=== PATIENT | male | born 1990 | race Caucasian/White ===

== ENCOUNTER 2018-01-01 13:26 | Emergency (ER) | payer MEDICAID ==
[2018-01-01] MEDS ORDERED: HYDROmorphone 1 mg/mL 1mL Syr IVP STA (14:52)
[2018-01-01] MEDS ORDERED: cefTRIAXone 2 GM in Sodium Chloride 0.9% 100 ML IV ONE (14:58)
[2018-01-01] MEDS ORDERED: HYDROmorphone 1 mg/mL 1mL Syr ONE (15:11)
--- NOTE | 2018-01-01 15:16 | ED Physician Chart ---
ED Chief Complaint/HPI - Patient Information Date Seen:: 01/01/18 Time Seen:: 13:45 Chief Complaint:: SOLE LEFT FOOT PAIN AND AGITATION/ANXIETY History of Present Illness:: THIS 27 YEAR OLD MALE WAS DISCHARGED FROM ANOTHER HOSPITAL WITH PERSCRIPTIONS FOR SERAQUEL, VALIUM AN ANTIBIOTIC AND PAIN MEDICATIONS. PT IS INSISTING THAT.HE SAID HE WAS DIAGNOSED WITH A DIAGNOSIS OF CELLLULITIS OF THE LEFT SOLE. THE PAIN IS 10/10 AND HAS BEEN PRESENT FOR ABOUT A WEEK. THE PAIN DOES NOT RADIATE UP HIS LEG OR GO ABOVE HIS ANKLE. THE PATIENT FURTHER STATES THAT HE IS POSITIVE FOR MRSA HE DENIES FEVER, CHILLS AND DIPHORESIS HE ALSO DENIES WALKING BAREFOOT. Allergies:: Allergies Allergy/AdvReac Type Severity Reaction Status Date / Time diphenhydramine Allergy Verified 01/01/18 14:09 [From Benadryl] haloperidol [From Haldol] Allergy Verified 01/01/18 14:09 Vitals:: Vital Signs - 8 hr 01/01/18 14:11 Temp 98.4 F HR 95 RR 18 BP 110/58 O2 Sat % 97 Historian:: Patient ED Review of Systems - Review of Systems General/Constitutional: No fever, No chills Skin: No bruising Head: Headache, No light-headedness Eyes: No pain, No diplopia ENT: No nasal drainage, No sore throat Neck: No stiffness Pulmonary: No cough GI: No nausea, No vomiting, No pain G/U: No dysuria, No hematuria, No nacturia Musculoskeletal: No back pain, No muscle pain Psychiatric: Prior psych history, Depression, No suicidal ideation Hematopoietic: No bruising, No lymphadenopathy Allergic/Immuno: No urticaria, No angioedema Neurological: No syncope, No focal symptoms, No dizziness Family Medical History - Family Member Mother History Unknown: Yes Ethnicity: Living Status: Still Living Other Medical History: Schizo-affective disorder, Bi-polar, anxiety ED Physical Exam - Physical Examination General/Constitutional: Awake, Well-developed, well-nourished, Alert, Ambulatory Other Gen/Cons comments:: AGGITATED AND UNCO-OPERATIVE. Head: Atraumatic Eyes: PERRL ENMT: External ears, nose nl, Nasal exam nl, Lips, teeth, gums nl, Oropharynx nl , Tonsils nl Neck: Nontender, No JVD, No nuchal rigidity, No mass, No stridor Respiratory: No Wheeze/Rhonchi/Rales Cardio Vascular: RRR, No murmur, gallop, rubs Other Cardio Vascular comments:: ADEQUATE PULSES ALL FOUR EXTREMITIES. GI: No tenderness/rebounding/guarding, No organomegaly, No hernia, Normal BS's, Nondistended, No mass/bruits, No McBurney tenderness Other GI comments:: RECTAL EXAM deferred at my discretion Other Extremities comments:: NO DEFORMITIES OF ANY EXTREMITY. The plantar surface of the left foot is minimally erythematous and not warm to the touch. It has the appearance of a partially a blister that is partially peeling over the ball over the foot. There is no exudate for periodic material present. The patient was claiming that it was tender to touch. Sensation intact to light touch in all four extremities. Motor strength is normal in the patient's gait is smooth. ED Labs/Radiology/EKG Results - Lab Results Results: Laboratory Tests 01/01/18 01/01/18 01/01/18 14:40 14:40 14:40 WBC 8.0 RBC 5.10 Hgb 13.6 Hct 42.4 MCV 83.0 MCH 26.6 MCHC Differential 32.0 RDW 14.4 Plt Count 218 MPV 8.2 Neutrophils % 58.0 Lymphocytes % 26.2 Monocytes % 11.3 H Eosinophils % 1.3 Basophils % 3.2 H Sodium 138 Potassium 3.4 L Chloride 105 Carbon Dioxide 21.9 Anion Gap 14.5 BUN 18 Creatinine 1.0 Est GFR ( Amer) > 60.0 Est GFR (Non-Af Amer) > 60.0 BUN/Creatinine Ratio 18.0 Glucose 99 Whole Bld Lactic Acid 1.85 Calcium 9.5 Total Bilirubin 1.0 AST 23 ALT 29 Alkaline Phosphatase 78 Total Protein 7.1 Albumin 4.3 Globulin 2.8 Albumin/Globulin Ratio 1.5 The CBC is unremarkable with no leukocytosis, anemia or thrombocytopenia. Renal function studies are within normal parameters electrolytes were all within normal standards except for the potassium which is mildly depressed at 3.4. Renal function studies were within normal parameters. Liver function studies were all within normal parameters. A lactic acid was sent as part of a census worker which was also within normal parameters. ED Assessment - Assessment General Assessment: CASE SUMMARY: 27-YEAR-OLD MALE WAS DISCHARGED FROM THE [facility] TODAY AND THE PATIENT COMES TO OUR FACILITY REQUESTING A REFILL OF HIS "LOST" PRESCRIPTIONS. THE PATIENT BECAME PROGRESSIVELY MORE AGITATED WHEN I WOULDN'T GIVE HIM VALIUM FOR HIS SEROQUEL. I FURTHER ADVISED HIM THAT HE WOULD HAVE TO RETURN TO THE OTHER HOSPITAL THAT DISCHARGED HIM WITH HIS PRESCRIPTIONS. I DID NOT FEEL THAT THE ANCIENT HAD ANY CELLULITIS OF HIS LEFT FOOT BUT ON THE OUTSIDE CHANCE, THAT HE HAD MRSA, I WROTE HIM A PRESCRIPTION. FOR BACTRIM DS. YOU REFUSE TO ACCEPT THE PRESCRIPTION AND HE REFUSED TO ACCEPT HIS DISCHARGE PAPERWORK. HE WAS ADVISED THAT HE COULD RETURN TO THE EMERGENCY DEPARTMENT BUT THAT HE WOULD NOT BE GIVEN ANY PRESCRIPTIONS OTHER THAN THE BACTRIM. DISCHARGED IN STABLE CONDITION. MDM DDX FOR AGGITATION: NOT HYPONATREMIA BASED ON NORMAL SERUM SODIUM. ED Septic Shock - . Is Septic Shock (SBP<90, OR Lactate>4 mmol\\L) present?: No - <6hrs of presentation: Vital Signs: Vital Signs - 8 hr 01/01/18 14:11 Temp 98.4 F HR 95 RR 18 BP 110/58 O2 Sat % 97 ED Reassessment (Disposition) - Reassessment Reassessment Condition:: Unchanged - Diagnosis Diagnosis:: BIPOLAR DISORDER. ED Discharge Plan - Patient Disposition Admit/Discharge/Transfer: PT DISCHARGED HOME Condition at Disposition: Stable Prescriptions: Sulfamethoxazole/TMP [Bactrim Ds] 1 tab PO BID #30 tab Instructions: Schizophrenia, Cellulitis, [id number], Bipolar Disorder Additional Instructions: Take antibiotic medication as prescribed. Follow-up with primary MD and psychiatrist as soon as possible.
[2018-01-01 15:17] LABS: % BASOPHILS 3.2 % (0.0-2.0); % EOSINOPHILS 1.3 % (0.0-5.0); % LYMPHOCYTES 26.2 % (20.0-50.0); % MONOCYTES 11.3 % (2.0-10.0); BASOPHILE ABSOLUTE 0.3 Th/cumm (0-0.2); EOSINOPHILE ABSOLUTE 0.1 Th/cmm (0.1-0.4); HEMATOCRIT 42.4 % (41.0-60); HEMOGLOBIN 13.6 gm/dL (12-16); LYMPHOCYTE ABSOLUTE 2.1 Th/cmm (1.5-3.0); MEAN CORPUSCULAR HEMOGLOBIN 26.6 pg (26.0-30.0); MEAN PLATELET VOLUME 8.2 fl; MONOCYTE ABSOLUTE 0.9 Th/cmm (0.3-1.0); NEUTROPHILE ABSOLUTE 4.6 Th/cmm (1.8-8.0); PLATELET COUNT 218 Th/cmm (150-400); RED CELL DISTRIBUTION WIDTH 14.4 % (11.5-20.0)
[2018-01-01 15:35] LABS: ALB/GLOB RATIO 1.5 (1.0-1.8); ALBUMIN 4.3 gm/dL (4.2-5.5); ALKALINE PHOSPHATASE 78 U/L (34-104); ANION GAP 14.5 (7.0-16.0); BUN - UREA NITROGEN 18 mg/dL (7-25); CALCIUM SERUM 9.5 mg/dL (8.6-10.3); CARBON DIOXIDE 21.9 mEq/L (21.0-31.0); CHLORIDE 105 mEq/L (98-107); GFR AFRICAN-AMERICAN > 60.0 ml/min (>90); GFR NON AFRICAN-AMERICAN > 60.0 ml/min; GLUCOSE 99 mg/dL (70-105); POTASSIUM SERUM 3.4 mEq/L (3.5-5.1); SGOT 23 U/L (13-39); SGPT/ALT 29 U/L (7-52); SODIUM SERUM 138 mEq/L (136-145); TOTAL PROTEIN,SERUM 7.1 gm/dL (6.0-8.3)
== END 2018-01-01 17:53 | disposition home or self-care (01) ==
LOC: ER 13:26
DX: F31.9 Bipolar disorder, unspecified (principal); Z88.8 Allergy status to other drugs, medicaments and biological substances
CPT/HCPCS: 99284; 96365; 96375; 36415; 83605; 85025; 80053; 87040 ×2; J0696 ×2; J3370 ×2; J1170; Z7502; Z7610

== ENCOUNTER 2018-04-21 17:51 | Emergency (ER) | payer MEDICARE, MEDICAID ==
[2018-04-21] MEDS ORDERED: Sulfamethoxazole/TMP 800/160mg Tab ONE (18:15)
--- NOTE | 2018-04-21 18:25 | ED Physician Chart ---
ED Chief Complaint/HPI - Patient Information Date Seen:: 04/21/18 Time Seen:: 18:10 Chief Complaint:: pruritic rash History of Present Illness:: Patient's had a widespread pruritic rash for the last 3 weeks. Patient is homeless and has been sleeping outside. When he takes Benadryl he gets a near panic attack. He has in the past taken Atarax/Vistaril without any problem. Allergies:: Allergies Allergy/AdvReac Type Severity Reaction Status Date / Time diphenhydramine Allergy Verified 04/21/18 18:01 [From Benadryl] haloperidol [From Haldol] Allergy Verified 04/21/18 18:01 Vitals:: Vital Signs - 8 hr 04/21/18 17:56 Temp 98.8 F HR 120 RR 16 BP 111/68 O2 Sat % 95 Historian:: Patient Review:: Nurse's Note Reviewed ED Review of Systems - Review of Systems General/Constitutional: No fever, No chills, No weight loss, No weakness, No diaphoresis, No edema, No loss of appetite Skin: Skin lesions, Rash, No rash, No bruising Head: No headache, No light-headedness Eyes: No loss of vision, No pain, No diplopia ENT: No earache, No nasal drainage, No sore throat, No tinnitus Neck: No neck pain, No swelling, No thyromegaly, No stiffness, No mass noted Cardio Vascular: No chest pain, No palpitations, No PND, No orthopnea, No edema Pulmonary: No SOB, No cough, No sputum, No wheezing GI: No nausea, No vomiting, No diarrhea, No pain, No melena, No hematochezia, No constipation, No hematemesis G/U: No dysuria, No frequency, No hematuria Musculoskeletal: No bone or joint pain, No back pain, No muscle pain Endocrine: No polyuria, No polydipsia Psychiatric: No prior psych history, No depression, No anxiety, No suicidal ideation Hematopoietic: No bruising, No lymphadenopathy Allergic/Immuno: No urticaria, No angioedema Neurological: No syncope, No focal symptoms, No weakness, No paresthesia, No headache, No seizure, No dizziness, No confusion, No vertigo ED Past Medical History - Past Medical History Past Medical History: Other (schizoaffective disorder; bipolar disorder) Family History: None Social History: Smoker, Alcohol, Other (smokes 2-3 cigarettes a day; drinks alcohol occasionally) Surgical History: None Psychiatricy History: Bipolar Medication: Reviewed Family Medical History - Family Member Mother History Unknown: Yes Ethnicity: Living Status: Still Living ED Physical Exam - Physical Examination General/Constitutional: Awake, Well-developed, well-nourished, Alert, No distress, GCS 15, Non-toxic appearing, Ambulatory Head: Atraumatic Eyes: Lids, conjuctiva normal, PERRL, EOMI Skin: Well hydrated, No lymphadenopathy Other Skin comments:: Multiple crusts up to 1 cm in diameter on extremities, face and neck; some crusts with up to 4 cm of surrounding erythema ENMT: External ears, nose nl, Nasal exam nl, Lips, teeth, gums nl Neck: Nontender, Full ROM w/o pain, No JVD, No nuchal rigidity, No bruit, No mass, No stridor Respiratory: Nl effort/Exclusion, Clear to Auscultation, No Wheeze/Rhonchi/Rales Cardio Vascular: RRR, No murmur, gallop, rubs, NL S1 S2 GI: No tenderness/rebounding/guarding, No organomegaly, No hernia, Normal BS's, Nondistended, No mass/bruits, No McBurney tenderness : No CVA tenderness Extremities: No tenderness or effusion, Full ROM, normal strength in all extremities, No edema, Normal digits & nails Neuro/Psych: Alert/oriented, DTR's symmetric, Normal sensory exam, Normal motor strength, Judgement/insight normal, Mood normal, Normal gait, No focal deficits Misc: Normal back, No paraspinal tenderness ED Assessment - Assessment General Assessment: Patient may have MRSA infection of his insect or spider bites. ED Septic Shock - <6hrs of presentation: Vital Signs: Vital Signs - 8 hr 04/21/18 17:56 Temp 98.8 F HR 120 RR 16 BP 111/68 O2 Sat % 95 ED Reassessment (Disposition) - Diagnosis Diagnosis:: Infected insect or spider bites; schizoaffective disorder; bipolar disorder - Aftercare/Follow up Instructions Aftercare/Follow-Up Instructions:: Refer to Discharge Instructions Medication Prescribed:: Bactrim DS No. 20 to take one twice a day and Atarax 25 mg #20 to take 1 4 times a day - Patient Disposition Discharge/Transfer:: Home Condition at Disposition:: Stable, Unchanged
[2018-04-21] MEDS ORDERED: Sulfamethoxazole/TMP 800/160mg Tab PO ONE (18:29)
== END 2018-04-21 19:00 | disposition short-term general hospital (02) ==
LOC: ER 17:51
DX: S00.86XA Insect bite (nonvenomous) of other part of head, initial encounter (principal); S10.96XA Insect bite of unspecified part of neck, initial encounter; F25.9 Schizoaffective disorder, unspecified; F31.9 Bipolar disorder, unspecified; F17.210 Nicotine dependence, cigarettes, uncomplicated; Z59.0 Homelessness; Z88.5 Allergy status to narcotic agent; Z88.8 Allergy status to other drugs, medicaments and biological substances; W57.XXXA Bitten or stung by nonvenomous insect and other nonvenomous arthropods, initial encounter; Y93.89 Activity, other specified; Y92.89 Other specified places as the place of occurrence of the external cause; Y99.8 Other external cause status
CPT/HCPCS: 82948-90; Z7502

== ENCOUNTER 2018-09-27 15:43 | Emergency (ER) | payer MEDICARE, MEDICAID ==
--- NOTE | 2018-09-27 18:50 | ED Physician Chart ---
ED Chief Complaint/HPI - Patient Information Date Seen:: 09/27/18 Time Seen:: 16:00 Chief Complaint:: Back Pain History of Present Illness:: onset x 3 days of intermittent, dull, MS type LBP; pt denies trauma, SIs, LOC, ALOC, AMS, H/As, S/T, neck pain, cough, C/P, SOB, Abd. Pain, A/N/V/D/C, fever, chills, paresthesias, weakness, dizziness, vertigo, gait changes, or urinary s/s Allergies:: Allergies Allergy/AdvReac Type Severity Reaction Status Date / Time diphenhydramine Allergy Verified 09/27/18 16:01 [From Benadryl] haloperidol [From Haldol] Allergy Verified 09/27/18 16:01 Vitals:: Vital Signs - 8 hr 09/27/18 09/27/18 16:03 16:42 Temp 99.5 F HR 110 102 RR 18 16 BP 118/72 120/76 O2 Sat % 98 98 Historian:: Patient Review:: Nurse's Note Reviewed, Old Chart Reviewed ED Review of Systems - Review of Systems General/Constitutional: No fever, No chills, No weight loss, No weakness, No diaphoresis, No edema, No loss of appetite Skin: No skin lesions, No rash, No bruising Head: No headache, No light-headedness Eyes: No loss of vision, No pain, No diplopia ENT: No earache, No nasal drainage, No sore throat, No tinnitus Neck: No neck pain, No swelling, No thyromegaly, No stiffness, No mass noted Cardio Vascular: No chest pain, No palpitations, No PND, No orthopnea, No edema Pulmonary: No SOB, No cough, No sputum, No wheezing GI: No nausea, No vomiting, No diarrhea, No pain, No melena, No hematochezia, No constipation, No hematemesis G/U: No dysuria, No frequency, No hematuria, No nacturia Musculoskeletal: No bone or joint pain, Back pain, No muscle pain Endocrine: No polyuria, No polydipsia Psychiatric: Prior psych history, Depression, Anxiety, No suicidal ideation, No homicidal ideation, No auditory hallucination, No visual hallucination Hematopoietic: No bruising, No lymphadenopathy Allergic/Immuno: No urticaria, No angioedema Neurological: No syncope, No focal symptoms, No weakness, No paresthesia, No headache, No seizure, No dizziness, No confusion, No vertigo ED Past Medical History - Past Medical History Obtainable: Yes Past Medical History: Arthritis (DDD) Family History: HTN Social History: Non Smoker, No Alcohol, No Drug Use, Single Surgical History: None Psychiatricy History: Depression, Schizophrenia, Bipolar Medication: Reviewed Family Medical History - Family Member Mother History Unknown: Yes Ethnicity: Living Status: Still Living ED Physical Exam - Physical Examination General/Constitutional: Awake, Well-developed, well-nourished, Alert, No distress, GCS 15, Non-toxic appearing, Ambulatory Head: Atraumatic Eyes: Lids, conjuctiva normal, PERRL, EOMI Skin: Nl inspection, No rash, No skin lesions, No ecchymosis, Well hydrated, No lymphadenopathy ENMT: External ears, nose nl, TM canals nl, Nasal exam nl, Lips, teeth, gums nl , Oropharynx nl, Tonsils nl Neck: Nontender, Full ROM w/o pain, No JVD, No nuchal rigidity, No bruit, No mass, No stridor Other Neck comments:: supple; no meningeal signs; no cervical tenderness; no bruits Respiratory: Nl effort/Exclusion, Clear to Auscultation, No Wheeze/Rhonchi/Rales Cardio Vascular: RRR, No murmur, gallop, rubs, NL S1 S2, Carotid/Femoral/Distal pulses equal bilaterally GI: No tenderness/rebounding/guarding, No organomegaly, No hernia, Normal BS's, Nondistended, No mass/bruits, No McBurney tenderness, Rectum exam nl Other GI comments:: no pulsatile masses : No CVA tenderness Extremities: No tenderness or effusion, Full ROM, normal strength in all extremities, No edema, Normal digits & nails Neuro/Psych: Alert/oriented, DTR's symmetric, Normal sensory exam, Normal motor strength, Judgement/insight normal, Mood normal, Normal gait, No focal deficits Other Neuro/Psych comments:: no focal signs Misc: Normal back, No paraspinal tenderness Other Misc comments:: + L-S Paravertebral Soft Tissue tenderness; no loss of ROMs; DTRs: 2+ Bilaterally; Gait: WNL; good motor, tendon, and sensory functions; no septic joints; no FBs; no cellulitis; good NV functions ED Septic Shock - . Is Septic Shock (SBP<90, OR Lactate>4 mmol\L) present?: No - <6hrs of presentation: Vital Signs: Vital Signs - 8 hr 09/27/18 09/27/18 16:03 16:42 Temp 99.5 F HR 110 102 RR 18 16 BP 118/72 120/76 O2 Sat % 98 98 ED Reassessment (Disposition) - Reassessment Reassessment:: pt is asymptomatic upon discharge Reassessment Condition:: Improved - Diagnosis Diagnosis:: Back Pain; L-S Strain; Sprains and Strains - Aftercare/Follow up Instructions Aftercare/Follow-Up Instructions:: Counseled pt regarding lab results/diagnosis & need follow up, Refer to Discharge Instructions, Counseled pt & family regarding lab results/diagnosis & need follow up - Patient Disposition Discharge/Transfer:: Home Condition at Disposition:: Stable, Improved (RTER prn if existing s/s reoccur and/or get worse and/or any other new s/s occur; ACIs given for all above Dx; Refer to Spinal Specialist/Orthopedist/Neurologist/Psychiatrist/Major Sales Associate [facility]; F/U with PMD in one day or prn; RTER prn if concerned)
== END 2018-09-27 16:50 | disposition home or self-care (01) ==
LOC: ER 15:43
DX: S33.5XXA Sprain of ligaments of lumbar spine, initial encounter (principal); S39.012A Strain of muscle, fascia and tendon of lower back, initial encounter; F32.9 Major depressive disorder, single episode, unspecified; F20.9 Schizophrenia, unspecified; M19.90 Unspecified osteoarthritis, unspecified site; Z88.5 Allergy status to narcotic agent; Z88.8 Allergy status to other drugs, medicaments and biological substances; X58.XXXA Exposure to other specified factors, initial encounter; Y93.89 Activity, other specified; Y92.89 Other specified places as the place of occurrence of the external cause; Y99.8 Other external cause status
CPT/HCPCS: 99283; 96372; J1885; Z7502